=== PATIENT | female | born 1995 | race Caucasian/White ===

== ENCOUNTER 2024-03-13 10:11 | Outpatient (REF) | payer OTHER, SELFPAY ==
[2024-03-14 10:35] LABS: Appearance Urine Clear; Color Urine Yellow; Glucose Urine UA Negative (Negative); Leukocyte Esterase Urine Negative (Negative); Nitrite Urine Negative (Negative); Specific Gravity - Urine <= 1.005 (1.005-1.025); Urine Blood Negative (Negative); Urine Ketones Negative (Negative); Urine Protein Negative (Neg-Trace)
== END 2024-03-13 10:12 | disposition home or self-care (01) ==
LOC: HO.HMGCLNP 10:11
PROVIDERS: Visit Provider Nurse Practitioner Primary Care
DX: Z13.89 Encounter for screening for other disorder (principal)
CPT/HCPCS: 81003

== ENCOUNTER 2024-03-13 14:52 | Outpatient (AMB) | payer OTHER, SELFPAY ==
--- NOTE | 2024-03-13 14:59 | MHC.PC.OV ---
Vital Signs 03/13/24 15:00 03/13/24 15:44 03/13/24 15:44 03/13/24 16:11 Height 5 ft 2 in Weight 125 lb BMI 22.9 BP 110/66 102/64 96/62 100/68 Blood Pressure Location Rt brachial Lt brachial Lt brachial Rt brachial Position Sitting Supine Standing Pulse 107 H 108 H Pulse Source Pulse Oximeter Pulse Oximeter Auscultation Pulse Oximetry (%) 98 98 Oxygen Delivery Method Room Air Room Air Intake Visit Reasons: Palpitations/OBGYN referral Intake Note: Pt is here today for a sick visit. Pt c/o palpitations, dizziness, blurry vision. 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 Allergies No Known Allergies Allergy (Verified 03/13/24 15:03) Medication List - Last Reconciled 03/13/24 by Chad Donis, RAPHAEL acetaminophen (Tylenol) 325 mg PO QID PRN ibuprofen 200 mg PO Q6H PRN multivitamin 1 tab PO DAILY Tobacco use date assessed: 03/13/24 Dental Screening Dental Screen Date: 03/13/24 Did you have a dental visit in the last 12 months?: No Did you have a dental problem in the last 6 months where you did not have access to dental care?: Yes Was dental information given to patient?: Yes HPI HPI Comments History of Present Illness Details This is a 28-year-old female who I am meeting for the 1st time Patient is here for sick visit, currently offering complaints of palpitations and dizziness after standing from a seated position. She reports that she will have a normal heart rate while sitting, after standing up her heart rate will start racing and will take a minute or 2 for to come down. She also reports intermittent dizziness. She has had past workup with Cardiology through [facility], states she has had exercise test and 3 day Holter monitor. She has not heard from them the results even though this was months ago. We will obtain records from [facility]. She denies chest pain, shortness a breath, numbness, nausea, vomiting, diarrhea. 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 Patient has upcoming appointment for genetic testing. Patient does not currently have OBGYN. She reports going to urgent care 5 days prior to this appointment had pelvic exam and was told she had vaginal prolapse. Patient's symptoms are discomfort during intercourse, pelvic floor pressure, feeling of sitting on a ball at times . Patient also has complaints of incomplete urinary voiding. Will give patient referral to OBGYN. Will obtain in office EKG. Will draw labs. Will obtain orthostatic blood pressures and heart rate. Will obtain records from patient's previous providers. [facility] Medical History (Updated 03/13/24 @ 16:19 by RAPHAEL Hoskins) ADHD Anxiety Migraines Muaro-Danlos syndrome Surgical History H/O bilateral salpingectomy Family History Father Hypertension Mental health disorder Substance use disorder Mother No problems noted. Social History Housing: Apartment Patient Tobacco Use Status: Never used Tobacco e-Cigarette/Vaping Use: Never Used service: No Current occupational status: employed and student Cognitive needs: No Hearing needs: No Vision needs: Yes Female Reproductive History Menstrual Multiple births: 3 Questionnaire PHQ-9 Over the last 2 weeks, how often have you been bothered by any of the following problems? 1. Little interest or pleasure in doing things: not at all 2. Feeling down, depressed, or hopeless: not at all 3. Trouble falling or staying asleep, or sleeping too much: more than half the days 4. Feeling tired or having little energy: more than half the days 5. Poor appetite or overeating: more than half the days 6. Feeling bad about yourself - or that you are a failure or have let yourself or your family down: not at all 7. Trouble concentrating on things, such as reading the newspaper or watching television: nearly every day 8. Moving or speaking so slowly that other people could have noticed. Or the opposite - being so fidgety or restless that you have been moving around a lot more than usual: several days 9. Thoughts that you would be better off or of hurting yourself in some way: not at all Total score: 10 Depression Screening Interpretation: Positive Depression Screening Follow-up: Existing condition (Patient declining psychiatrist, medication, therapist) Depression Screening Done: Yes 64108 - PHQ-9 Billing: Yes Source: Developed by Kathryn Lucas Kurt Kroenke and colleagues, with an educational emma from [employer]. Thrive Questionnaire Date Thrive assessed: 03/13/24 I am a: Patient What is your living situation today?: I have a steady place to live Within the past 12 months, did the food you bought not last and you didn't have the money to get more?: Never true Within the past 12 months, did you worry whether your food would run out before you got money to buy more?: Never true Do you have trouble paying for medicines?: No Do you have trouble getting transportation to medical appointments?: Yes Do you have trouble paying your heating and electricity bill?: No Do you have trouble taking care of your child, family member or friend?: No Do you have trouble with day-to-day activities such as bathing, preparing meals, shopping, managing finances, etc.?: No Are you currently unemployed and looking for a job?: No Are you interested in more education?: No Please select the resources that you would like help with: None Currently or been in a relationship where the following occur: no concerns reported THRIVE Score: 1 AUDIT C Alcohol Use Questionnaire (AUDIT-C) 1. How often do you have a drink containing alcohol?: Never 3. How often do you have six or more drinks on one occasion?: Never Total Score: 0 AVIS-7 AMB Questionnaire AVIS-7 Date AVIS - 7 assessed: 03/13/24 Feeling nervous, anxious, or on edge: 1 = Several days Not being able to stop or control worryin = More than half the days Worrying too much about different things: 2 = More than half the days Trouble relaxin = More than half the days Being so restless that it is hard to sit still: 2 = More than half the days Becoming easily annoyed or irritable: 3 = Nearly every day Feeling afraid as if something awful might happen: 1 = Several days Total AVIS-7 score (0-4 normal; 5-9 mild; 10-14 moderate; 15-21 severe): 13 Source: Developed by Kathryn Lucas Kurt Kroenke and colleagues, with an educational emma from [employer]. AVIS-7 Assessment Billing AVIS-7 Assessment Tool: AVIS-7 Assessment 30823 (Patient declining medication, therapist, psychiatrist) Review of Systems Const All systems reviewed & are unremarkable except as noted in HPI and below Denies fatigue and Denies fever(s) Eyes Denies blurry vision and Denies diplopia Card Denies chest pain and Denies dyspnea Resp Denies dyspnea Psych Reports anxiety, Denies depression and Denies panic attacks Endo Denies fatigue Physical exam (Primary Care) Vital Signs: Last Vital Signs Pulse 80 03/13/24 16:11 BP 100/68 03/13/24 16:11 Pulse Ox 98 03/13/24 15:44 Oxygen Delivery Method Room Air 03/13/24 15:44 BMI result Body Mass Index 22.9 Tobacco/Smoking Status: Tobacco use Status Tobacco use date assessed 03/13/24 03/13/24 15:07 Patient Tobacco Use Status Never used Tobacco 03/13/24 15:07 e-Cigarette/Vaping Use Never Used 03/13/24 15:07 Depression Screening Interpretation: Positive Depression Screening Follow-up: Existing condition (Patient declining psychiatrist, medication, therapist) Currently or been in a relationship where the following occur: no concerns reported Const General: cooperative and no acute distress Orientation/consciousness: patient oriented x3 Limitations: no limitations HENMT Head: Yes normal to inspection and Yes normocephalic Ears: hearing grossly normal bilaterally Eyes General: appearance normal, both eyes and all related structures Pupils: Equal, round and reactive pupils present EOM: EOMs intact bilaterally Direct Ophthalmoscopy: normal light reflex, no photophobia and no papilledema Neck Neck: Yes normal visual inspection and Yes full ROM Resp Effort & Inspection: normal respiratory effort Auscultation: clear to auscultation bilaterally Cardio Rate: regular rate Rhythm: regular rhythm Heart sounds: S1 normal heart sound present and S2 normal heart sound present Peripheral pulses: Peripheral pulses 2+ throughout General: Yes deferred Neuro General: patient oriented x3 Cranial nerves: Yes CN's II-XII intact bilaterally and Yes Equal, round and reactive pupils present Gait exam (Neuro): Normal gait present Romberg Test: Negative Psych Affect: normal affect Attitude: cooperative Thought process: Normal thought process present Thought content: Normal thought content present, suicidality and no homicidality Insight: Good insight present (Psych) Judgement: Good judgement present (Psych) Office Procedures EKG [id number], Complete Results AMB Urinalysis, Automated UA Leukoctes 0 Charisma/uL Last Edit by Candy Downey [facility] on 03/13/24 15:38 UA Nitrite Negative Last Edit by Candy Downey [facility] on 03/13/24 15:38 UA Urobilinogen 0.2 mg/dL Last Edit by Candy Downey [facility] on 03/13/24 15:38 UA Protein 0 mg/dL Last Edit by Candy Downey [facility] on 03/13/24 15:38 UA pH 6.0 Last Edit by Candy Downey [facility] on 03/13/24 15:38 UA Blood 0 Claude/uL Last Edit by Candy Downey [facility] on 03/13/24 15:38 UA Specific Sumner 1.000 Last Edit by Candy Downey [facility] on 03/13/24 15:38 UA Ketone Negative Last Edit by Candy Downey [facility] on 03/13/24 15:38 UA Bilirubin 0 mg/dL Last Edit by Candy Downey [facility] on 03/13/24 15:38 UA Glucose 0 mg/dL Last Edit by Candy Downey [facility] on 03/13/24 15:38 Results Reviewed Results Reviewed: Laboratory Last Values Urine pH (Auto) 6.0 03/13/24 15:37 Specific [place]ner (Auto) 1.000 03/13/24 15:37 Urine Protein (Auto) 0 mg/dL 03/13/24 15:37 Glucose (UA)(Auto) 0 mg/dL 03/13/24 15:37 Urine Ketones (Auto) Negative 03/13/24 15:37 Urine Blood (Auto) 0 Claude/uL 03/13/24 15:37 Urine Nitrite (Auto) Negative 03/13/24 15:37 Urine Bilirubin (Auto) 0 mg/dL 03/13/24 15:37 Urine Urobilinogen (Auto) 0.2 mg/dL 03/13/24 15:37 Leukocyte Esterase (Auto) 0 Charisma/uL 03/13/24 15:37 Assessment and Plan Assessment & Plan (1) Voiding dysfunction: Comment: Will refer to Urology. In office urinalysis negative. Voiding dysfunction may be secondary to vaginal prolapse Code(s): N39.8 - Other specified disorders of urinary system (2) Vaginal prolapse: Comment: Will obtain notes from previous provider who diagnosed vaginal prolapse. Will refer to OBGYN. Code(s): N81.10 - Cystocele, unspecified (3) Palpitations: Comment: Normal sinus rhythm on EKG in office. Patient negative for postural hypotension. 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 Patient should increase fluid intake. Code(s): R00.2 - Palpitations (4) Anxiety: Comment: Patient has medical history of anxiety and ADHD. Not currently taking medications for this. Patient has declined psychiatrist and therapist. No SI/HI. Code(s): F41.9 - Anxiety disorder, unspecified Plan: Take your medications as prescribed. If you were prescribed antibiotics today, it is important that you take your medication to their entirety, do not skip any doses, do not finish them early. Follow-up with your primary care provider this week. Return to the emergency department with new or worsening symptoms. Such as fevers, chills, chest pain, shortness of breath, nausea, vomiting, dizziness, headache, vision changes, lethargy In case of emergency call 911 Plan Patient will follow-up in 4 months Orders: Orders Comprehensive Met. Panel Today Z91.89 - Other specified personal risk factors, not elsewhere classified UA CC w/rflx Micro + Cult Today Z13.89 - Encounter for screening for other disorder Vitamin B6 Today Z13.21 - Encounter for screening for nutritional disorder Lipid Panel Today Z13.220 - Encounter for screening for lipoid disorders AMB EKG-In Office Today Z13.6 - Encounter for screening for cardiovascular disorders Ferritin Today R42 - Dizziness and giddiness Complete Blood Count Auto Diff Today Z13.0 - Encounter for screening for diseases of the blood and blood-forming organs and certain disorders involving the immune mechanism TSH reflex Free T4 Today Z13.29 - Encounter for screening for other suspected endocrine disorder Vitamin D 25-OH (D2 and D3) Today Z13.21 - Encounter for screening for nutritional disorder Vitamin B12 Today Z13.21 - Encounter for screening for nutritional disorder AMB Urinalysis Automated Today Z13.9 - Encounter for screening, unspecified 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
[2024-03-13 15:00] VITALS: BP 110/66; PULSE 107; O2SAT 98; BMI 22.9
[2024-03-13 15:44] VITALS: BP 102/64; BP 96/62; PULSE 108; O2SAT 98
[2024-03-13 16:11] VITALS: BP 100/68
== END 2024-03-13 16:13 | disposition home or self-care (01) ==
PROVIDERS: Visit Provider Nurse Practitioner Primary Care
DX: N39.8 Other specified disorders of urinary system (principal); N81.10 Cystocele, unspecified; R00.2 Palpitations; F41.9 Anxiety disorder, unspecified
CPT/HCPCS: 81003; 93000; 99204

== ENCOUNTER 2024-03-25 09:31 | Outpatient (REF) | payer OTHER, SELFPAY ==
[2024-03-25 10:22] LABS: MANUAL DIFF FLAG NO
[2024-03-25 10:33] LABS: Basophils Percent Auto 0.4 % (0-2); Eosinophils Absolute Auto 0.1 X10*3/uL (0.0-0.4); Eosinophils Percent Auto 1.1 % (0-4); Hematocrit 39.1 % (37.0-47.0); Imm Gran Abs Auto 0.04 X10*3/uL (0.00-0.03); Imm Gran Pct Auto 0.4 % (0.0-0.4); Lymphocytes Absolute Auto 2.4 X10*3/uL (1.2-4.9); Lymphocytes Percent Auto 24.5 % (20-40); Mean Corpuscular HGB Conc 33.2 g/dl (31.0-35.0); Mean Corpuscular Hemoglobin 29.7 pg (27.0-33.0); Mean Corpuscular Volume 89.3 fL (80.0-98.0); Mean Platelet Volume 9.4 fL (9.4-12.3); Monocytes Absolute Auto 0.4 X10*3/uL (0.1-1.2); Monocytes Percent Auto 4.3 % (2-11); Neutrophils Absolute Auto 6.7 x10*3/uL (2.0-8.3); Neutrophils Percent Auto 69.3 % (45-73); Platelet Count 337 X10*3/uL (160-400); Red Blood Count 4.38 X10*6/uL (4.20-5.50); Red Cell Distribution Width 12.7 % (11.0-16.0); White Blood Count 9.6 X10*3/uL (4.8-10.8)
[2024-03-25 11:21] LABS: Alanine Aminotransferase 7 U/L (0-31); Albumin Level 4.6 g/dL (3.5-5.0); Alkaline Phosphatase 107 U/L (39-117); Anion Gap 14 (12-20); Aspartate Amino Transferase 14 U/L (5-31); Bilirubin Total 0.4 mg/dL (0.0-1.0); Blood Urea Nitrogen 9 mg/dL (9-16); Calcium 9.9 mg/dL (8.4-10.2); Carbon Dioxide 29 mmol/L (22-29); Chloride 104 mmol/L (96-108); Cholesterol 195 mg/dL (<200); Estimated Glomerular Filt Rate > 60; Glucose Random 84 mg/dL (60-115); HDL Cholesterol 42 mg/dL (>40); LDL Cholesterol Calculated 124 mg/dL (<100); Sodium 143 mmol/L (135-145); Total Protein 7.9 g/dL (6.5-8.0); Triglycerides 145 mg/dL (<150)
[2024-03-25 11:30] LABS: Ferritin 36 ng/mL (10-122); TSH reflex Free T4 0.71 uIU/mL (0.32-4.0)
[2024-03-25 11:37] LABS: Vitamin B12 395 pg/mL (200-900)
[2024-03-29 13:58] LABS: Vitamin D 25-OH, D2 <4 ng/mL; Vitamin D 25-OH, D3 26 ng/mL; Vitamin D 25-OH, Total 26 ng/mL (30-100)
[2024-04-03 06:09] LABS: Vitamin B6 19.8 ng/mL (2.1-21.7)
== END 2024-03-25 09:32 | disposition home or self-care (01) ==
LOC: HO.HMGCLDS 09:31
PROVIDERS: PCP Internal Medicine; Visit Provider Nurse Practitioner Primary Care
DX: R42 Dizziness and giddiness (principal); Z13.21 Encounter for screening for nutritional disorder; Z13.220 Encounter for screening for lipoid disorders; Z13.0 Encounter for screening for diseases of the blood and blood-forming organs and certain disorders involving the immune mechanism; Z91.89 Other specified personal risk factors, not elsewhere classified; Z13.29 Encounter for screening for other suspected endocrine disorder
CPT/HCPCS: 36415; 80053; 80061; 82306; 82607; 82728; 84207; 84443; 85025

== ENCOUNTER 2024-04-07 14:00 | Emergency (ER) | payer OTHER, SELFPAY ==
--- NOTE | 2024-04-07 14:01 | ED_ITS ---
HPI - General Adult General Chief complaint: Arrhythmia/Palpitations Stated complaint: chest pain with palpations Time Seen by Provider: 04/07/24 16:30 Source: patient Mode of arrival: ambulatory Limitations: no limitations History of Present Illness ED Provider: ant GARCIA narrative: Patient is 28 years old with history of palpitation for last few years been seen at [facility] had Holter monitoring done so ago showing possible POTS has got a new PCP now patient has been noticing amputation episodes lately faster heart rate was 151 week ago when she went to urgent care center and was sinus tachycardia at that time Related Data Home Medications ?Medication ?Instructions ?Recorded ?Confirmed acetaminophen 325 mg capsule 325 mg PO QID PRN 03/13/24 03/13/24 (Tylenol) ibuprofen 200 mg capsule 200 mg PO Q6H PRN 03/13/24 03/13/24 multivitamin 1 tab PO DAILY 03/13/24 03/13/24 Allergies Allergy/AdvReac Type Severity Reaction Status Date / Time No Known Allergies Allergy Verified 04/07/24 14:20 Review of Systems 2 Review of Systems: Yes all other systems are reviewed and are negative PMFSH Past Medical History Medical History Internal hemorrhoid Abnormal glucose tolerance test (GTT) Subchorionic hematoma ADHD Anxiety Migraines Mauro-Danlos syndrome Surgical History H/O bilateral salpingectomy Family History Family History Father Hypertension Mental health disorder Substance use disorder Mother No problems noted. Social History Social History Housing: Apartment Patient Tobacco Use Status: Never used Tobacco e-Cigarette/Vaping Use: Never Used Substance Use Type: Marijuana Advance Directives: No Advance Directives Information Provided: No Do you have a plan to hurt others: No Plan service: No Current occupational status: employed and student Cognitive needs: No Hearing needs: No Vision needs: Yes Physical Exam ED Vital Signs: Vital Signs - 24 hr 04/07/24 14:18 04/07/24 16:13 04/07/24 16:14 Temperature 97.9 F 98.5 F Pulse Rate 95 66 66 Respiratory Rate 18 17 Blood Pressure 108/78 128/76 128/76 Pulse Oximetry 98 99 Oxygen Delivery Method Room Air Room Air 04/07/24 16:14 04/07/24 16:15 Temperature Pulse Rate 66 80 Respiratory Rate Blood Pressure 121/76 109/75 Pulse Oximetry Oxygen Delivery Method BMI result Body Mass Index 22.3 Appearance: Alert. Oriented X3. No acute distress. Eyes: No pallor or ENT: Pharynx normal. Oral Mucosa moist Neck: Normal inspection. Neck supple. CVS: Normal heart rate and rhythm. Pulses normal. Respiratory: No respiratory distress. Equal air entry bilateral, no wheezing/rales/rhonchi Abdomen: Soft and nontender. Bowel sounds are present, no mass palpable, no CVA tenderness Skin: Skin warm and dry. Normal skin color. Normal skin turgor. Extremities: No lower extremity edema. No calf tenderness Neuro: Oriented X 3. No motor deficit. No sensory deficit.No cerebellar signs , cranial nerves II-XII intact Course Course Course Narrative: 28-year-old female presents for evaluation of chest pain palpitations and dizziness. She reports having a tilt-table test scheduled. Plan for cardiac workup including labs, EKG and orthostatics. Medical Decision Making Medical Decision Making [facility] Narrative: Patient with history of tachycardia palpitation episode been in workup with PCP denies any urinary symptoms noted to have slight leukocytosis no source of infection no fever cup essentially negative patient advised to follow with PCP for further evaluation possible POTS syndrome Differential Diagnosis Differential Diagnoses: The differential diagnosis associated with the presentation includes Lab Data MDM Lab Attestation statement: I reviewed the patient's lab results. 04/07/24 14:14 04/07/24 14:14 Labs: Lab Results 04/07/24 Range/Units 14:14 WBC 14.1 H (4.8-10.8) X10*3/uL RBC 4.28 (4.20-5.50) X10*6/uL Hgb 12.9 (12.0-16.0) g/dl Hct 36.9 L (37.0-47.0) % MCV 86.2 (80.0-98.0) fL MCH 30.1 (27.0-33.0) pg MCHC 35.0 (31.0-35.0) g/dl RDW 13.0 (11.0-16.0) % Plt Count 299 (160-400) X10*3/uL MPV 9.3 L (9.4-12.3) fL Immature Gran % (Auto) 0.4 (0.0-0.4) % Neut % (Auto) 78.5 H (45-73) % Lymph % (Auto) 16.2 L (20-40) % [place] % (Auto) 4.5 (2-11) % Eos % (Auto) 0.1 (0-4) % Baso % (Auto) 0.3 (0-2) % Lymph # (Auto) 2.3 (1.2-4.9) X10*3/uL [place] # (Auto) 0.6 (0.1-1.2) X10*3/uL Eos # (Auto) 0.0 (0.0-0.4) X10*3/uL Baso # (Auto) 0.0 (0.0-0.2) X10*3/uL Abs Immat Gran (auto) 0.06 H (0.00-0.03) X10*3/uL Absolute Neuts (auto) 11.1 H (2.0-8.3) x10*3/uL Absolute Nucleated RBC 0.000 (0.0-0.012) X10*3/uL Nucleated RBC % (auto) 0.0 (0.0-0.2) /100WBC PT 12.9 (11.1-13.3) SEC INR 1.1 (0.9-1.1) Sodium 137 (135-145) mmol/L Potassium 3.7 (3.3-5.1) mmol/L Chloride 103 (96-108) mmol/L Carbon Dioxide 24 (22-29) mmol/L Anion Gap 14 (12-20) BUN 11 (9-16) mg/dL Creatinine 0.63 (0.5-1.4) mg/dL Estim Creat Clear Calc 106.1 Estimated GFR > 60 Random Glucose 92 (60-115) mg/dL Calcium 10.0 (8.4-10.2) mg/dL Phosphorus 3.4 (2.7-4.5) mg/dL Magnesium 1.9 (1.6-2.6) mg/dL Total Bilirubin 0.6 (0.0-1.0) mg/dL AST 18 (5-31) U/L ALT 8 (0-31) U/L Alkaline Phosphatase 112 (39-117) U/L Troponin I High Sens < 2.7 (<3.5-17.0) ng/L Total Protein 7.9 (6.5-8.0) g/dL Albumin 4.7 (3.5-5.0) g/dL Lipase 16 (8-78) U/L Independent Interpretation I performed an independent interpretation of an: EKG Interpretation: Normal sinus rhythm heart rate 96 beats per minute normal interval normal axis no acute ST T wave changes Discharge Plan Discharge Clinical Impression: Sinus tachycardia Patient Disposition: Home, Self-Care Instructions: Tachycardia (ED) Additional Instructions: Possible you have POTS syndrome need further workup by your PCP as planned Drink at least 3 L of fluids daily Follow-up with your PCP Prescriptions: No Action multivitamin Tablet 1 tab PO DAILY acetaminophen [Tylenol] 325 mg capsule 325 mg PO QID PRN ibuprofen 200 mg capsule 200 mg PO Q6H PRN Print Language: Portuguese
--- NOTE | 2024-04-07 14:02 | ECG_ITS ---
Test Reason : CHEST PAIN Blood Pressure : / mmHG Vent. Rate : 096 BPM Atrial Rate : 096 BPM P-R Int : 146 ms QRS Dur : 084 ms QT Int : 354 ms P-R-T Axes : 083 075 054 degrees QTc Int : 447 ms Normal sinus rhythm Right atrial enlargement Borderline ECG No previous ECGs available Referred By: Malcolm Vergara Electronically Signed By:PIEDAD HERNANDEZ MD
[2024-04-07 14:18] VITALS: BP 108/78; PULSE 95; RESP 18; TEMP 36.6; O2SAT 98; BMI 22.3
[2024-04-07 14:39] LABS: MANUAL DIFF FLAG NO
[2024-04-07 14:41] LABS: Basophils Percent Auto 0.3 % (0-2); Eosinophils Percent Auto 0.1 % (0-4); Hematocrit 36.9 % (37.0-47.0); Hemoglobin 12.9 g/dl (12.0-16.0); Imm Gran Abs Auto 0.06 X10*3/uL (0.00-0.03); Imm Gran Pct Auto 0.4 % (0.0-0.4); Lymphocytes Absolute Auto 2.3 X10*3/uL (1.2-4.9); Lymphocytes Percent Auto 16.2 % (20-40); Mean Corpuscular Hemoglobin 30.1 pg (27.0-33.0); Mean Corpuscular Volume 86.2 fL (80.0-98.0); Mean Platelet Volume 9.3 fL (9.4-12.3); Monocytes Absolute Auto 0.6 X10*3/uL (0.1-1.2); Monocytes Percent Auto 4.5 % (2-11); Neutrophils Absolute Auto 11.1 x10*3/uL (2.0-8.3); Neutrophils Percent Auto 78.5 % (45-73); Platelet Count 299 X10*3/uL (160-400); Red Blood Count 4.28 X10*6/uL (4.20-5.50); White Blood Count 14.1 X10*3/uL (4.8-10.8)
[2024-04-07 14:46] LABS: INTERNATIONAL NORM RATIO 1.1 (0.9-1.1); Prothrombin Time 12.9 SEC (11.1-13.3)
[2024-04-07 14:59] LABS: Alanine Aminotransferase 8 U/L (0-31); Albumin Level 4.7 g/dL (3.5-5.0); Alkaline Phosphatase 112 U/L (39-117); Anion Gap 14 (12-20); Aspartate Amino Transferase 18 U/L (5-31); Bilirubin Total 0.6 mg/dL (0.0-1.0); Blood Urea Nitrogen 11 mg/dL (9-16); Carbon Dioxide 24 mmol/L (22-29); Chloride 103 mmol/L (96-108); Creatinine Clr Calc Pharmacy 106.1; Estimated Glomerular Filt Rate > 60; Glucose Random 92 mg/dL (60-115); Lipase 16 U/L (8-78); Magnesium 1.9 mg/dL (1.6-2.6); Phosphorus 3.4 mg/dL (2.7-4.5); Potassium 3.7 mmol/L (3.3-5.1); Sodium 137 mmol/L (135-145); Total Protein 7.9 g/dL (6.5-8.0)
[2024-04-07 15:15] LABS: Troponin-I High Sensitivity < 2.7 ng/L (<3.5-17.0)
[2024-04-07 16:13] VITALS: BP 128/76; PULSE 66; RESP 17; TEMP 36.9; O2SAT 99
[2024-04-07 16:14] VITALS: BP 121/76; BP 128/76; PULSE 66
[2024-04-07 16:15] VITALS: BP 109/75; PULSE 80
[2024-04-07 18:59] VITALS: BP 109/75; PULSE 80; RESP 17; TEMP 36.9; O2SAT 99
== END 2024-04-07 18:59 | disposition home or self-care (01) ==
PROVIDERS: Physician Assistant; Emergency Provider Internal Medicine; PCP Internal Medicine
DX: R00.0 Tachycardia, unspecified (principal); R07.9 Chest pain, unspecified; R42 Dizziness and giddiness; R00.2 Palpitations; F41.9 Anxiety disorder, unspecified; Q79.60 Ehlers-Danlos syndrome, unspecified; F12.90 Cannabis use, unspecified, uncomplicated; Z79.899 Other long term (current) drug therapy
CPT/HCPCS: 36415; 80053; 83690; 83735; 84100; 84484; 85025; 85610; 93005; 99284

== ENCOUNTER → 2024-04-07 14:02 | Outpatient (BNV) | payer OTHER, SELFPAY | PROVIDERS: PCP Internal Medicine; Visit Provider Internal Medicine Cardiovascular Disease | DX: R07.9 Chest pain, unspecified (principal); R94.31 Abnormal electrocardiogram [ECG] [EKG]; I51.7 Cardiomegaly | CPT/HCPCS: 93010 ==

== ENCOUNTER → 2024-04-15 15:01 | Outpatient (REF) | payer OTHER, SELFPAY ==
--- NOTE | 2024-04-15 15:03 | HM_ITS ---
Conclusion: 1. Patient was monitored for total period of 6 days and 23 hours 2. Baseline was normal sinus rhythm with average heart of 76 beats per minute 3. No significant pauses or arrhythmias noted 4. Patient marked the counter 64 times with symptoms of chest pain or palpitations that correlated with sinus rhythm MTDD
== END ==
LOC: HO.CARD 15:01
PROVIDERS: PCP Internal Medicine; Visit Provider Nurse Practitioner Primary Care
DX: R00.2 Palpitations (principal)
CPT/HCPCS: 93242

== ENCOUNTER → 2024-04-15 15:03 | Outpatient (BNV) | payer OTHER, SELFPAY | PROVIDERS: PCP Internal Medicine; Visit Provider Internal Medicine Cardiovascular Disease | DX: R00.0 Tachycardia, unspecified (principal) | CPT/HCPCS: 93244 ==

== ENCOUNTER 2024-04-29 14:19 | Outpatient (REF) | payer OTHER, SELFPAY ==
[2024-04-29 23:04] LABS: CT PCR NOT DETECTED (Not Detect.); NG PCR NOT DETECTED (Not Detect.)
[2024-04-30 10:59] LABS: Bacterial Vaginosis PCR NEGATIVE (Negative); Candida Group PCR NOT DETECTED (Not Detect); Candida glab krusei PCR NOT DETECTED (Not Detect); Trichomonas vaginalis PCR NOT DETECTED (Not Detect)
== END 2024-04-29 14:20 | disposition home or self-care (01) ==
LOC: HO.LAB 14:19
PROVIDERS: PCP Internal Medicine; Visit Provider Advanced Practice Midwife
DX: Z01.419 Encounter for gynecological examination (general) (routine) without abnormal findings (principal); R10.2 Pelvic and perineal pain; N89.8 Other specified noninflammatory disorders of vagina; N39.8 Other specified disorders of urinary system; N81.10 Cystocele, unspecified; Q79.60 Ehlers-Danlos syndrome, unspecified; Z87.59 Personal history of other complications of pregnancy, childbirth and the puerperium; Z90.79 Acquired absence of other genital organ(s); Z11.3 Encounter for screening for infections with a predominantly sexual mode of transmission
CPT/HCPCS: 0352U; 0353U; 36415; 87625; 88175; 99385

== ENCOUNTER 2024-04-29 14:19 | Outpatient (AMB) | payer OTHER, SELFPAY ==
[2024-04-29 14:46] VITALS: BP 112/62; BMI 23.2
--- NOTE | 2024-04-29 14:46 | MHC.OFFVIS ---
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 She says she has history of 3 deliveries all rapid and quick only 1 with an epidural. 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 She has leg braces that she uses to keep her knees stable and she is always needed to work hard to make sure that she does not hyperextend her joints which are very hyper mobile. She has issues with prolapse and holding her urine and emptying completely and also lots of other related issues. She is getting evaluated in many different forms in [place] for all of this she thought she had a Pap smear at her last 2 pelvic exams 1 it primary care recently and 1 at urgent care but usually Pap smears are not done in those settings so I am recommending we do a Pap smear today along with testing she had her tubes removed after her 3rd baby because she has such close pregnancies and complications with the last ones.(common OB concerns 1 hemorrhage slow leak at 37 weeks growth restriction is 1 subchorionic hemorrhage with 1 . [facility] Medical History (Updated 04/29/24 @ 15:57 by Migdalia King CNM) Internal hemorrhoid Abnormal glucose tolerance test (GTT) Subchorionic hematoma ADHD Anxiety Migraines Mauro-Danlos syndrome Surgical History (Updated 04/29/24 @ 15:57 by Migdalia King CNM) H/O bilateral salpingectomy Family History Father Hypertension Mental health disorder Substance use disorder Mother No problems noted. 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 General: healthy appearing, comfortable, no acute distress, well developed and alert Nutritional Appearance: average body habitus Orientation/consciousness: patient oriented x3 Limitations: no limitations HEENT Head: Yes normocephalic Neck Neck: Yes normal visual inspection Chest Chest palpation & inspection: normal inspection of the chest Breast/axilla inspection: normal inspection of the breasts and normal inspection of the axillae Breast/axilla palpation: normal palpation of the breasts and normal palpation of the axillae Resp Effort & Inspection: normal respiratory effort GI Inspection: Yes normal to inspection, No Abdominal wall edema and No distended Palpation (GI): Soft to palpation and nontender Other: External exam within normal limits. Evidence of excellent 2nd degree last repair. Vagina pink and moist cervix multiparous pink moist normal appearing mucus midposition proximally 6 cm inside the introitus. Uterus is small firm retroverted mobile nontender adnexa nontender no enlarged masses. Bladder slightly full patient was able to sustain a very good strong Kegel with some elevation of cervix in the process. When patient bore down on request, there was some dropping the uterine structures but not close to the degree of prolapse. General: Yes bladder normal to palpation External Female Exam: normal external appearance and normal appearance of the urethra Speculum Exam - Vagina: normal appearance of the vagina, normal palpation and normal vaginal discharge Speculum Exam - Cervix: normal appearance of the cervix, normal palpation and nontender Bimanual exam- vagina & uterus: normal bimanual exam, normal palpation, uterine size normal, bladder normal to palpation, consistency normal, normal palpation, uterine mobility normal, uterine shape normal, No Cervical tenderness present, non-tender and no cervical motion tenderness Bimanual Exam- Adnexa, other: normal adnexae, no masses, normal and No adnexal tenderness Neuro General: patient oriented x3 Assessment & Plan Assessment & Plan (1) Voiding dysfunction: Comment: Will refer to Urology. In office urinalysis negative. Voiding dysfunction may be secondary to vaginal prolapse Code(s): N39.8 - Other specified disorders of urinary system Category: Medical (2) Vaginal prolapse: Comment: Will obtain notes from previous provider who diagnosed vaginal prolapse. Will refer to OBGYN. Code(s): N81.10 - Cystocele, unspecified Category: Medical (3) Mauro-Danlos syndrome: Code(s): Q79.60 - Mauro-Danlos syndrome, unspecified Category: Medical (4) H/O rapid labor: Code(s): Z87.59 - Personal history of other complications of , childbirth and the puerperium Category: Medical (5) Cervical cancer screening: Code(s): Z12.4 - Encounter for screening for malignant neoplasm of cervix Category: Medical (6) Encounter for screening examination for sexually transmitted disease: Code(s): Z11.3 - Encounter for screening for infections with a predominantly sexual mode of transmission Category: Medical (7) H/O bilateral salpingectomy: Comment: 01/2022 Code(s): Z90.79 - Acquired absence of other genital organ(s) Category: Surgical (8) Well woman exam with routine gynecological exam: Code(s): Z01.419 - Encounter for gynecological examination (general) (routine) without abnormal findings Category: Medical Plan -----Discussed in this visit the following: healthy balanced diet, regular and consistent exercise, getting recommended health screens, doing the best she can for her particular health concerns, kegel exercises, pap smear screening and followup recommendations, mammography screening and SBE, normal changes in cycles in her life stage--- . Most of the visit was spent discussing her hypermobility in all its forms and how it is manifested throughout her life she already has a urology referral. I am placing a pelvic floor specialty/PT referral she did a very good strong long prolonged Kegel with resultant lift and support of pelvic structures in the office so I expect while this may be of value it may simply be a refresher for what she already is able to do. She may in the future need a urogynecological referral at [facility]. She is awaiting a genetics evaluation to see genetically if she has the markers for Mauro Danlos syndrome. Discussed that in what ever fashion she certainly has hypermobility and anything that she can do to maintain strength and function and avoid unprotected jerky unsupported movements would be to her benefit she has already considered the benefits of swimming and cycling for strength and this makes sense. She has had her tubes tied so she does not need control discussed other issues involved with mild prolapse which can be very depending on whether not she has been straining or pushing. Today it was not profound except when she did bear down I was able to feel that there was some descensus but I would not have called it prolapse today. It would not surprise me if she has more evident prolapse if she has been straining for a bowel movement or some such thin. Testing was done for STIs even though she is low risk and Pap smear was done as it was not likely that it was done at the last few visits in fact it was not in the system her youngest child is 2 years old and she thinks 1 was probably done in that most likely at the beginning according to most care systems. 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
== END 2024-04-29 16:20 | disposition home or self-care (01) ==
LOC: HO.HWSM 14:19
PROVIDERS: PCP Internal Medicine; Visit Provider Advanced Practice Midwife
DX: Z01.419 Encounter for gynecological examination (general) (routine) without abnormal findings (principal); N39.8 Other specified disorders of urinary system; N81.10 Cystocele, unspecified; Q79.60 Ehlers-Danlos syndrome, unspecified; Z87.59 Personal history of other complications of pregnancy, childbirth and the puerperium; Z12.4 Encounter for screening for malignant neoplasm of cervix; Z11.3 Encounter for screening for infections with a predominantly sexual mode of transmission; Z90.79 Acquired absence of other genital organ(s)
CPT/HCPCS: 99385

== ENCOUNTER → 2024-05-13 12:47 | Outpatient (REF) | payer OTHER, SELFPAY ==
--- NOTE | 2024-05-13 12:51 | CA_ITS ---
Transthoracic Echocardiogram Patient (Last, First, Middle): Migdalia Marte, Gender: Female Date of : 1995 Age: 28 Procedure Date: 05/13/2024 Procedure Type: Transthoracic Echocardiogram Location: OP Height: 160.02 cm Weight: 57.15 kg BSA: 1.59 m2 Heart Rate: bpm BP: 114 / 68 mmHg Production Coordinator: MOSES Referring MD: Chad LIM Symptoms: R00.2 - Palpitations Study Quality: Adequate ECG Rhythm: Sinus Conclusions: - The left ventricular systolic function is normal. The calculated ejection fraction is 64% by biplane method. - No obvious valvular pathology seen on this study. Findings Left Ventricle Normal left ventricular cavity size. There is normal left ventricular wall thickness. The left ventricular systolic function is normal. The calculated ejection fraction is 64% by biplane method. There is no evidence of regional wall motion abnormalities. Diastolic function is normal for age. Right Ventricle Normal right ventricular cavity size and systolic function. Atria Both atria are normal in size. Aortic Valve There is a normal trileaflet aortic valve. There is no aortic valve stenosis. There is no aortic valve regurgitation. Mitral Valve The mitral valve appears normal. There is trace mitral valve regurgitation. There is no mitral valve stenosis. Pulmonic Valve The pulmonic valve is likely normal. Tricuspid Valve Normal tricuspid valve structure. There is trace tricuspid valve regurgitation. There is no evidence of pulmonary hypertension. Great Vessels The asc aorta is normal in size. Venous The inferior vena cava is mildly dilated and collapses greater than 50% with inspiration. Pericardium/Pleural There is no evidence of pericardial effusion. Prior Study Comparison No prior study available for comparison. Recommendations, Care & Conclusions No obvious valvular pathology seen on this study. Measurements 2D Linear Measurements IVSd: 0.68 0.6-0.9/0.6-1.0 cm LVIDd: 4.85 3.9-5.3/4.2-5.9 cm LVIDd Index: 3.05 2.4-3.2/2.2-3.1 cm/m2 LVIDs: 3.03 2.0-3.6 cm LVPWd: 0.55 0.7-1.1 cm LA Diam: 3.30 2.7-3.8/3.0-4.0 cm LAIDs Index: 2.08 1.5-2.3 cm/m2 LV Mass: 114.41 67-162/88-224 g LV Mass Index: 71.95 43-95/49-115 g/m2 LVOT Diam: 1.90 3.0+(-)1.3 cm 2D Systolic Function EF 4C: 63.30 >55% EF 2C: 63.40 >55% EF BiP: 63.90 >55% Mitral Valve MV Pk E: 0.88 MV PK A: 0.57 MV Decel Time: 180.00 E/A: 1.50 E'Lateral: 17.50 E'Medial: 11.60 E/E' Med: 7.60 E/E' Lat: 5.00 PHT: 53.00 MVA PHT: 4.15 Decel [place]: 4.90 Aortic Valve AoV Pk Andres: 1.52 AoV Mn Andres: 1.00 AoV VTI: 0.35 AoV Pk Grad: 9.00 Aov Mn Grad: 5.00 PARESH Cont.VTI: 2.35 LVOT LVOT Pk Andres: 1.35 LVOT Mn Andres: 0.89 LVOT VTI: 0.29 LVOT Pk Grad: 7.00 LVOT Mn Grad: 4.00 LVOT Diam: 1.90 LVOT Area: 2.84 Diastolic Function MV Pk E: 0.88 MV Pk A: 0.57 E/A: 1.50 E'Medial: 11.60 E/E' Med: 7.60 E' Laterial: 17.50 E/E' Lat: 5.00 Right Ventricle TAPSE (mm): 23.80 TVS' Andres: 12.30 Tricuspid Valve TR Pk Andres: 1.95 TR Pk Grad: 15.00 RA Press: 3.00 RVSP: 18.00 Great Vessels Aorta Sinus of Valsalva: 2.52 2.0-3.[address] [place]: 2.03 1.7-3.4 cm Ao Asc: 2.20 2.1-3.4 cm Updated in Other Vendor System with Status of Final Chema Herring MD electronically signed on 05/13/2024 3:31:15 PM with status of Final
== END ==
LOC: HO.CARD 12:47
PROVIDERS: PCP Internal Medicine; Visit Provider Nurse Practitioner Primary Care
DX: R00.2 Palpitations (principal)
CPT/HCPCS: 93306

== ENCOUNTER → 2024-05-13 12:51 | Outpatient (BNV) | payer OTHER, SELFPAY | PROVIDERS: PCP Internal Medicine; Visit Provider Internal Medicine | DX: R01.1 Cardiac murmur, unspecified (principal) | CPT/HCPCS: 93306 ==

== ENCOUNTER 2024-07-25 09:37 | Outpatient (AMB) | payer OTHER, SELFPAY ==
--- NOTE | 2024-07-25 09:35 | MHC.PC.OV ---
Intake Visit Reasons: c/o back and hip pain Allergies No Known Allergies Allergy (Verified 07/25/24 10:26) Medication List - Last Reconciled 07/25/24 by Alison Barrow MD acetaminophen (Tylenol) 325 mg PO QID PRN ibuprofen 200 mg PO Q6H PRN Tobacco use date assessed: 07/25/24 Dental Screening Dental Screen Date: 07/25/24 Did you have a dental visit in the last 12 months?: No Did you have a dental problem in the last 6 months where you did not have access to dental care?: No Was dental information given to patient?: No HPI c/o back and hip pain HPI Details Lady here today complaining of recurrent pain on her back, from between her shoulder blades and down to her lower back, which has been present now for years. She also is complaining of recurrent pain in her hip and knees, sometimes feels like her hip is dislocating whenever she walks. She has been taking ibuprofen and has been doing exercises to strengthen her muscles but this does not seem to be helping permanently. She has been diagnosed to have hypermobility syndrome when she was younger, and has been seen by Orthopedics, physical therapists and [employer] attendant when she was younger. She schedule an appointment with a shop helper in [place] with , at the [facility] in [place] for further evaluation and to check and see if she has Mauro-Danlos syndrome. Patient also states that she has been diagnosed to vaginal and bladder prolapse by Kali Hampton, urogynecologist at [facility], and is scheduled to have surgery on 09/19/2024. [facility] Medical History (Updated 07/26/24 @ 01:36 by Alison Barrow MD) Chronic hip pain, bilateral Lower back pain Chronic thoracic back pain Prolapse of female pelvic organs Hypermobility syndrome Internal hemorrhoid Abnormal glucose tolerance test (GTT) Subchorionic hematoma ADHD Anxiety Migraines Surgical History (Updated 04/29/24 @ 15:57 by Migdalia King CNM) H/O bilateral salpingectomy Family History Father Hypertension Mental health disorder Substance use disorder Mother No problems noted. Social History Housing: Apartment Patient Tobacco Use Status: Never used Tobacco e-Cigarette/Vaping Use: Never Used Substance Use Type: Marijuana service: No Current occupational status: employed Cognitive needs: No Hearing needs: No Vision needs: Yes Female Reproductive History Menstrual Age of Menarche: 14 Questionnaire Thrive Questionnaire Date Thrive assessed: 07/21/24 AVIS-7 AMB Questionnaire AVIS-7 Date AVIS - 7 assessed: 03/13/24 Source: Developed by Drs. Juan Pablo Orta, Kathryn Wang, Vinny Gray and colleagues, with an educational emma from [employer]. Review of Systems Const Denies fever(s) Eyes Denies change in vision ENT Reports no additional complaints and Reports neck pain Card Denies chest pain and Denies dyspnea Resp Denies chest congestion, Denies cough and Denies dyspnea GI Reports no additional complaints Details: Complaining of sensation of popping in her knees and hips whenever she walks or stands for extended periods of time. Musc Reports as per HPI, Reports arthralgias, Reports muscle cramps, Reports neck pain, Reports stiffness and Reports other Neuro Reports no additional complaints Physical exam (Primary Care) Tobacco/Smoking Status: Tobacco use Status Tobacco use date assessed 07/25/24 07/25/24 09:36 Patient Tobacco Use Status Never used Tobacco 07/25/24 09:36 e-Cigarette/Vaping Use Never Used 07/25/24 09:36 Thrive Assessment: Date of Thrive Assessment Date Thrive assessed 07/21/24 07/25/24 09:36 Telehealth Telehealth Telehealth Platform: [email or web address] Location of provider rendering services: practice address Location of patient: address on file Patient Identification confirmed using: Name, : Yes Telehealth method: video Patient verbally consented to treatment: Yes Patient verbally consented to billing insurance company: Yes Patient informed of any privacy concerns related to visit: Yes Minutes spent on Phone/Video with Pt.: 15 Assessment and Plan Assessment & Plan (1) Chronic thoracic back pain: Code(s): M54.6 - Pain in thoracic spine; G89.29 - Other chronic pain Qualifiers: Back pain laterality: midline Qualified Code(s): M54.6 - Pain in thoracic spine; G89.29 - Other chronic pain Plan: Ordered x-ray of the thoracic spine, continue with ibuprofen alternating with Tylenol, apply moist heat or Salonpas patch with lidocaine to affected area, has had physical therapy in the past and has been seen by Rheumatology when she was a child. (2) Lower back pain: Code(s): M54.50 - Low back pain, unspecified Qualifiers: Chronicity: chronic Back pain laterality: bilateral Sciatica presence: without sciatica Qualified Code(s): M54.50 - Low back pain, unspecified; G89.29 - Other chronic pain Plan: X-ray of lumbosacral spine ordered (3) Chronic hip pain, bilateral: Code(s): M25.551 - Pain in right hip; M25.552 - Pain in left hip; G89.29 - Other chronic pain Plan: Bilateral hip x-ray with pelvis ordered Orders: Orders XR lumbar spine 6V w bending 07/25/24 G89.29 - Other chronic pain, M25.551 - Pain in right hip, M25.552 - Pain in left hip, M54.50 - Low back pain, unspecified, M54.6 - Pain in thoracic spine XR hip BI w PEL1V 07/25/24 G89.29 - Other chronic pain, M25.551 - Pain in right hip, M25.552 - Pain in left hip, M54.50 - Low back pain, unspecified, M54.6 - Pain in thoracic spine XR thoracic spine 3V 07/25/24 G89.29 - Other chronic pain, M25.551 - Pain in right hip, M25.552 - Pain in left hip, M54.50 - Low back pain, unspecified, M54.6 - Pain in thoracic spine Coding Level of Care Code Tele Est Pt Level 3 (33211) Diagnoses Chronic midline thoracic back pain M54.6; G89.29 Back pain laterality: midline Chronic bilateral low back pain without sciatica M54.50; G89.29 Chronicity: chronic Back pain laterality: bilateral Sciatica presence: without sciatica Chronic hip pain, bilateral M25.551; M25.552; G89.29
== END 2024-07-25 13:06 | disposition home or self-care (01) ==
LOC: HO.HMCC 09:37
PROVIDERS: PCP Internal Medicine; Visit Provider Internal Medicine
DX: M54.6 Pain in thoracic spine (principal); G89.29 Other chronic pain; M54.50 Low back pain, unspecified; M25.551 Pain in right hip; M25.552 Pain in left hip

== ENCOUNTER → 2024-07-25 09:37 | Outpatient (BNVA) | payer OTHER, SELFPAY | PROVIDERS: PCP Internal Medicine; Visit Provider Internal Medicine ==

== ENCOUNTER 2025-03-23 12:47 | Outpatient (AMB) | payer OTHER, SELFPAY ==
[2025-03-23 13:17] VITALS: BP 100/62; PULSE 78; RESP 18; TEMP 36.9; O2SAT 98; BMI 26.0
--- NOTE | 2025-03-23 13:17 | MHC.PC.OV ---
Vital Signs 03/23/25 13:17 Height 5 ft 2 in Weight 142 lb BMI 26.0 BP 100/62 Blood Pressure Location Rt brachial Position Sitting Respiration 18 Pulse 78 Pulse Source Pulse Oximeter Temp 98.5 F Temp Source Oral Pulse Oximetry (%) 98 Oxygen Delivery Method Room Air Comment wgt with bilateral leg brace Intake Visit Reasons: request rx for durable brace Intake Note: Pt is here today to request rx for durable brace Allergies No Known Allergies Allergy (Verified 03/23/25 13:30) Medication List - Last Reconciled 03/23/25 by Alison Barrow MD acetaminophen (Tylenol) 325 mg PO QID PRN ibuprofen 200 mg PO Q6H PRN Tobacco use date assessed: 03/23/25 Dental Screening Dental Screen Date: 03/23/25 Did you have a dental visit in the last 12 months?: Yes Did you have a dental problem in the last 6 months where you did not have access to dental care?: Yes Was dental information given to patient?: Patient has dentist HPI request rx for durable brace HPI Details - The patient is a 29-year-old female presenting with 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 - The patient previously underwent a transvaginal hysterectomy, robotic S CP, sling and cystoscopy due to stage II pelvic organ prolapse done by Dr. 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 - Additionally, she reports chronic diarrhea with various stool consistencies, raising concern for potential malabsorption related to her gastrointestinal symptoms. [facility] Medical History (Updated 03/24/25 @ 01:04 by Alison Barrow MD) Chronic diarrhea Gait instability Chronic hip pain, bilateral Lower back pain Chronic thoracic back pain Prolapse of female pelvic organs Hypermobility syndrome Internal hemorrhoid Abnormal glucose tolerance test (GTT) Subchorionic hematoma ADHD Anxiety Migraines Surgical History (Updated 03/24/25 @ 00:58 by Alison Barrow MD) Status post embolization of uterine artery S/P sacrocolpopexy Status post vaginal hysterectomy History of tubal ligation Family History Father Hypertension Mental health disorder Substance use disorder Mother No problems noted. Social History Housing: Apartment Patient Tobacco Use Status: Never used Tobacco e-Cigarette/Vaping Use: Never Used Substance Use Type: Marijuana service: No Current occupational status: employed Cognitive needs: No Hearing needs: No Vision needs: Yes Female Reproductive History Menstrual Age of Menarche: 14 Questionnaire PHQ-9 Over the last 2 weeks, how often have you been bothered by any of the following problems? 1. Little interest or pleasure in doing things: not at all 2. Feeling down, depressed, or hopeless: not at all 3. Trouble falling or staying asleep, or sleeping too much: more than half the days 4. Feeling tired or having little energy: nearly every day 5. Poor appetite or overeating: several days 6. Feeling bad about yourself - or that you are a failure or have let yourself or your family down: not at all 7. Trouble concentrating on things, such as reading the newspaper or watching television: several days 8. Moving or speaking so slowly that other people could have noticed. Or the opposite - being so fidgety or restless that you have been moving around a lot more than usual: nearly every day 9. Thoughts that you would be better off or of hurting yourself in some way: not at all Total score: 10 Source: Developed by Drs. Juan Pablo Orta, Kathryn Wang, Vinny Gray and colleagues, with an educational emma from [employer]. Thrive Questionnaire Date Thrive assessed: 03/23/25 I am a: Patient What is your living situation today?: I have a steady place to live Within the past 12 months, did the food you bought not last and you didn't have the money to get more?: Never true Within the past 12 months, did you worry whether your food would run out before you got money to buy more?: Never true Do you have trouble paying for medicines?: No Do you have trouble getting transportation to medical appointments?: No Do you have trouble paying your heating and electricity bill?: No Do you have trouble taking care of your child, family member or friend?: No Do you have trouble with day-to-day activities such as bathing, preparing meals, shopping, managing finances, etc.?: No Are you currently unemployed and looking for a job?: No Are you interested in more education?: No Please select the resources that you would like help with: None Currently or been in a relationship where the following occur: No concerns reported THRIVE Score: 0 AUDIT C Alcohol Use Questionnaire (AUDIT-C) 1. How often do you have a drink containing alcohol?: Monthly or less 2. How many drinks containing alcohol do you have on a typical day when you are drinking?: 1 or 2 3. How often do you have six or more drinks on one occasion?: Never Total Score: 1 AVIS-7 AMB Questionnaire AVIS-7 Date AVIS - 7 assessed: 03/13/24 Feeling nervous, anxious, or on edge: 0 = Not at all Not being able to stop or control worryin = Not at all Worrying too much about different things: 1 = Several days Trouble relaxin = Several days Being so restless that it is hard to sit still: 0 = Not at all Becoming easily annoyed or irritable: 1 = Several days Feeling afraid as if something awful might happen: 0 = Not at all Total AVIS-7 score (0-4 normal; 5-9 mild; 10-14 moderate; 15-21 severe): 3 Source: Developed by Drs. Juan Pablo Orta, Kathryn Wang, Vinny Gray and colleagues, with an educational emma from [employer]. Review of Systems Const Denies fever(s) Eyes Denies change in vision ENT Reports no additional complaints and Reports neck pain Card Denies chest pain and Denies dyspnea Resp Denies chest congestion, Denies cough and Denies dyspnea GI Details: chronic diarrhea, loose stools, and food intolerance Details: Complaining of sensation of popping in her knees and hips whenever she walks or stands for extended periods of time, which makes it difficult for her to walk, frequently losing her balance, wears leg braces for support. Musc Reports as per HPI, Reports arthralgias, Reports muscle cramps, Reports neck pain and Reports stiffness Skin/Breast Reports unusual bruising Neuro Reports no additional complaints Paramjit/Lymph Reports easy bruising Aller/Immun Reports no additional complaints Physical exam (Primary Care) Vital Signs: Last Vital Signs Temp 98.5 F 03/23/25 13:17 Pulse 78 03/23/25 13:17 Resp 18 03/23/25 13:17 BP 100/62 03/23/25 13:17 Pulse Ox 98 03/23/25 13:17 Oxygen Delivery Method Room Air 03/23/25 13:17 BMI result Body Mass Index 26.0 Tobacco/Smoking Status: Tobacco use Status Tobacco use date assessed 03/23/25 03/23/25 13:18 Patient Tobacco Use Status Never used Tobacco 03/23/25 13:18 e-Cigarette/Vaping Use Never Used 03/23/25 13:18 PHQ-9: PHQ-9 Score PHQ-9: Total score 10 03/23/25 13:30 Thrive Assessment: Date of Thrive Assessment Date Thrive assessed 03/23/25 03/23/25 13:18 Currently or been in a relationship where the following occur: No concerns reported Const General: cooperative and no acute distress Orientation/consciousness: patient oriented x3 HENMT Head: Yes normal to inspection and Yes normocephalic Ears: hearing grossly normal bilaterally Eyes General: appearance normal, both eyes and all related structures Pupils: Equal, round and reactive pupils present EOM: EOMs intact bilaterally Direct Ophthalmoscopy: normal light reflex, no photophobia and no papilledema Neck Neck: Yes normal visual inspection and Yes full ROM Resp Effort & Inspection: normal respiratory effort Auscultation: clear to auscultation bilaterally Cardio Rate: regular rate Rhythm: regular rhythm Heart sounds: S1 normal heart sound present and S2 normal heart sound present Peripheral pulses: Peripheral pulses 2+ throughout Skin Other: Slightly loose skin noted General skin exam: no rashes or lesions noted Neuro General: patient oriented x3 Cranial nerves: Yes CN's II-XII intact bilaterally and Yes Equal, round and reactive pupils present Gait exam (Neuro): Normal gait present Romberg Test: Negative Psych Affect: normal affect Attitude: cooperative Thought process: Normal thought process present Thought content: Normal thought content present Coding Level of Care Code Est Pt Level 4 (96621) Complex EM visit Add On G2211 Diagnoses Hypermobility syndrome M35.7 Chronic midline thoracic back pain M54.6; G89.29 Back pain laterality: midline Chronic bilateral low back pain without sciatica M54.50; G89.29 Back pain laterality: bilateral Chronicity: chronic Sciatica presence: without sciatica Chronic hip pain, bilateral M25.551; M25.552; G89.29 Gait instability R26.81 Generalized abdominal pain R10.84 Abdominal location: generalized Food intolerance K90.49 Chronic diarrhea K52.9 Assessment & Plan Assessment & Plan (1) Hypermobility syndrome: Comment: Diagnosed in the past by her pediatric Rheumatology, currently has an appointment to see a non clinical advisor in [place] in 12/2024 Code(s): M35.7 - Hypermobility syndrome Category: Medical (2) Chronic thoracic back pain: Code(s): M54.6 - Pain in thoracic spine; G89.29 - Other chronic pain Category: Medical Qualifiers: Back pain laterality: midline Qualified Code(s): M54.6 - Pain in thoracic spine; G89.29 - Other chronic pain (3) Lower back pain: Code(s): M54.50 - Low back pain, unspecified Category: Medical Qualifiers: Back pain laterality: bilateral Chronicity: chronic Sciatica presence: without sciatica Qualified Code(s): M54.50 - Low back pain, unspecified; G89.29 - Other chronic pain (4) Chronic hip pain, bilateral: Code(s): M25.551 - Pain in right hip; M25.552 - Pain in left hip; G89.29 - Other chronic pain Category: Medical (5) Gait instability: Code(s): R26.81 - Unsteadiness on feet Category: Medical (6) Abdominal pain: Code(s): R10.9 - Unspecified abdominal pain Category: Medical Qualifiers: Abdominal location: generalized Qualified Code(s): R10.84 - Generalized abdominal pain (7) Food intolerance: Code(s): K90.49 - Malabsorption due to intolerance, not elsewhere classified Category: Medical (8) Chronic diarrhea: Code(s): K52.9 - Noninfective gastroenteritis and colitis, unspecified Category: Medical Plan - Follow up with referrals to rheumatology and gastroenterology specialists as soon as possible. - Complete fasting blood work as ordered. - Attend physical therapy sessions to improve joint stability. - Monitor and report any exacerbations of pain or new symptoms. - Ensure genetic testing appointment is scheduled for next year. - Follow a balanced diet and ensure proper hydration, especially in warm weather. - Contact our office if you don't hear from any specialty referrals after 10 days. - Schedule an appointment for a full physical in June. I discussed the possible diagnosis of Mauro-Danlos Syndrome with the patient, highlighting genetic testing utility for confirming subtype diagnosis and guiding management. We explored the option of consulting a granulizing machine operator and physical therapy to manage joint symptoms and affirmed the importance of gastrointestinal evaluation for her digestive complaints. The risks of ongoing symptoms versus the benefits of a thorough multidisciplinary approach were emphasized. I advised plastic as possible on the importance of monitoring any aggravation of pain or joint stability issues and immediately seeking care if symptoms escalate or affect her ability to perform daily tasks. Future follow-ups will ensure monitoring and adjustment of her care plan. Patient was informed and verbally consented to the use of an ambient scribe for clinic note documentation during this visit Orders: Orders PT Evaluation and Treatment 03/23/25 G89.29 - Other chronic pain, M25.551 - Pain in right hip, M25.552 - Pain in left hip, M35.7 - Hypermobility syndrome, M54.50 - Low back pain, unspecified, M54.6 - Pain in thoracic spine, R26.81 - Unsteadiness on feet Referrals Rheumatology Referral G89.29 - Other chronic pain, M25.551 - Pain in right hip, M25.552 - Pain in left hip, M35.7 - Hypermobility syndrome, M54.50 - Low back pain, unspecified, M54.6 - Pain in thoracic spine Gastroenterology Referral K52.9 - Noninfective gastroenteritis and colitis, unspecified, K90.49 - Malabsorption due to intolerance, not elsewhere classified, R10.9 - Unspecified abdominal pain
== END 2025-03-23 13:49 | disposition home or self-care (01) ==
PROVIDERS: PCP Internal Medicine; Visit Provider Internal Medicine
DX: M35.7 Hypermobility syndrome (principal); M54.6 Pain in thoracic spine; G89.29 Other chronic pain; M54.50 Low back pain, unspecified; M25.551 Pain in right hip; M25.552 Pain in left hip; R26.81 Unsteadiness on feet; R10.84 Generalized abdominal pain; K90.49 Malabsorption due to intolerance, not elsewhere classified; K52.9 Noninfective gastroenteritis and colitis, unspecified

== ENCOUNTER → 2025-03-23 12:47 | Outpatient (BNVA) | payer OTHER, SELFPAY | PROVIDERS: PCP Internal Medicine; Visit Provider Internal Medicine | DX: M35.7 Hypermobility syndrome (principal); M54.6 Pain in thoracic spine; M54.50 Low back pain, unspecified; M25.551 Pain in right hip; M25.552 Pain in left hip; G89.29 Other chronic pain; R26.81 Unsteadiness on feet; R10.84 Generalized abdominal pain; K90.49 Malabsorption due to intolerance, not elsewhere classified; K52.9 Noninfective gastroenteritis and colitis, unspecified | CPT/HCPCS: 99212 ==

== ENCOUNTER 2025-03-27 10:50 | Outpatient (REF) | payer OTHER, SELFPAY ==
--- NOTE | ~2025-03-27 | XR_ITS ---
CLINICAL HISTORY: M54.6 - Pain in thoracic spine 3 views thoracic spine Comparison: None Findings: Normal vertebral body alignment. No acute fractures or dislocation. No significant degenerative change. IMPRESSION: No acute findings. This document has been electronically signed by: Tim Chowdhury MD on 03/28/2025 08:45:24
--- NOTE | ~2025-03-27 | XR_ITS ---
CLINICAL HISTORY: M54.6 - Pain in thoracic spine 7 views lumbar spine Comparison: None Findings: Normal vertebral body alignment. Alignment is maintained with flexion and extension positioning. No acute fractures or dislocation. No significant degenerative change. IMPRESSION: No acute findings. This document has been electronically signed by: Tim Chowdhury MD on 03/28/2025 08:45:33
--- NOTE | ~2025-03-27 | XR_ITS ---
CLINICAL HISTORY: M54.6 - Pain in thoracic spine 5 views, pelvis and bilateral hips Comparison: None Findings: No acute fracture or dislocation. No significant arthritic change. The soft tissues are unremarkable. IMPRESSION: No acute findings. This document has been electronically signed by: Tim Chowdhury MD on 03/28/2025 08:44:19
== END 2025-03-27 10:51 | disposition home or self-care (01) ==
LOC: HO.XRAY 10:50
PROVIDERS: PCP Internal Medicine; Visit Provider Internal Medicine
DX: M54.6 Pain in thoracic spine (principal); G89.29 Other chronic pain; M54.50 Low back pain, unspecified; M25.551 Pain in right hip; M25.552 Pain in left hip
CPT/HCPCS: 72072; 72114; 73521

== ENCOUNTER → 2025-03-27 10:57 | Outpatient (BNV) | payer OTHER, SELFPAY | PROVIDERS: PCP Internal Medicine; Visit Provider Specialist | DX: M54.6 Pain in thoracic spine (principal) | CPT/HCPCS: 72072; 72114; 73521 ==

== ENCOUNTER 2025-05-13 15:46 | Emergency (ER) | payer OTHER, SELFPAY ==
[2025-05-13 16:01] VITALS: BP 103/74; PULSE 92; RESP 18; TEMP 36.7; O2SAT 98; BMI 24.5
--- NOTE | 2025-05-13 16:04 | ED.GENADULT ---
HPI - General Adult General Chief complaint: General Medical Stated complaint: Abd pain, concerned Time Seen by Provider: 05/13/25 18:43 Related Data Home Medications ?Medication ?Instructions ?Recorded ?Confirmed acetaminophen 325 mg capsule 325 mg PO QID PRN 03/13/24 04/29/24 (Tylenol) ibuprofen 200 mg capsule 200 mg PO Q6H PRN 03/13/24 04/29/24 Allergies Allergy/AdvReac Type Severity Reaction Status Date / Time No Known Allergies Allergy Verified 05/13/25 16:05 [facility] Past Medical History Medical History (Updated 05/14/25 @ 00:01 by Fouzia De Paz) Chronic diarrhea Gait instability Chronic hip pain, bilateral Lower back pain Chronic thoracic back pain Prolapse of female pelvic organs Hypermobility syndrome Internal hemorrhoid Abnormal glucose tolerance test (GTT) Subchorionic hematoma ADHD Anxiety Migraines Surgical History (Updated 03/24/25 @ 00:58 by Alison Barrow MD) Status post embolization of uterine artery S/P sacrocolpopexy Status post vaginal hysterectomy History of tubal ligation Family History Family History Father Hypertension Mental health disorder Substance use disorder Mother No problems noted. Social History Social History Housing: Apartment Patient Tobacco Use Status: Never used Tobacco Smoked in Last 30 Days: No e-Cigarette/Vaping Use: Never Used Use of substances other than those prescribed or required for medical reasons: Yes Substance Use Type: Marijuana Substance Use Frequency: Daily Advance Directives: No Advance Directives Information Provided: No Do you have a plan to hurt others: No Plan service: No Current occupational status: employed Cognitive needs: No Hearing needs: No Vision needs: Yes Physical Exam ED Vital Signs: Vital Signs - 24 hr 05/13/25 16:01 05/13/25 19:51 05/13/25 20:41 Temperature 98.1 F 98.7 F 98.7 F Pulse Rate 92 55 55 Respiratory Rate 18 16 16 Blood Pressure 103/74 107/57 L 107/57 L Pulse Oximetry 98 99 99 Oxygen Delivery Method Room Air Room Air Room Air BMI result Body Mass Index 24.5 Course Course Course Narrative: This is an RME: Additional HPI, ROS, PE not included below will be deferred to primary provider. RME assessment and note performed by: Leslie Lockhart PA-C This is a [id number]-female, with a hx of vaginal hysterectomy sling and cystoscopy due to pelvic organ prolapse done by Dr. Hendrickson complicated by hemoperitoneum and aortic dissection, with concerns for ?pelvic organ prolapse. Reports that she has had suprapubic pressure, urinary retention and also bulging in private regions after intimacy. Plan: EKG, labs, UA, further Er eval needed Medical Decision Making Medical Decision Making MDM Narrative: Medical Decision Makin-year-old female with history of uterine prolapse rectocele and rectal prolapse possible connective tissue disorder. Urogynecology procedure removing uterus and cervix previously now with some vague lower discomfort of the abdomen. No fever no chills no lower abdominal tenderness on examination. Urine does not suggest UTI. I discussed with her the limitations of a pelvic exam she declined this. 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 I do not see any indication for acute imaging and I had a lengthy shared decision-making discussion with the patient regarding that she is agreeable to avoid any ultrasound CT, pelvic exam or other testing at this time. Preliminary Favored Differential Diagnosis: Constipation, GI cramping, gas, less likely ovarian cyst, no examination or historical findings suggestive of torsion or acute emergent adnexal pathology or intestinal pathology. No right lower quadrant tenderness to suggest appendicitis among additional considered etiologies Testing Interpreted Independently: Not Applicable Radiology or Lab testing Results Reviewed: Not Applicable Consults: Not Applicable Independent Historians/External Chart Reviews: Not Applicable Social Determinants of Health Impacting MDM/Planning: Not Applicable Lab Data 05/13/25 16:56 05/13/25 16:56 Labs: Lab Results 05/13/25 05/13/25 Range/Units 16:56 17:01 WBC 11.3 H (4.8-10.8) X10*3/uL RBC 3.95 L (4.20-5.50) X10*6/uL Hgb 12.0 (12.0-16.0) g/dl Hct 34.4 L (37.0-47.0) % MCV 87.1 (80.0-98.0) fL MCH 30.4 (27.0-33.0) pg MCHC 34.9 (31.0-35.0) g/dl RDW 12.4 (11.0-16.0) % Plt Count 268 (160-400) X10*3/uL MPV 9.1 L (9.4-12.3) fL Immature Gran % (Auto) 0.2 (0.0-0.4) % Neut % (Auto) 73.0 (45-73) % Lymph % (Auto) 21.0 (20-40) % [place] % (Auto) 4.8 (2-11) % Eos % (Auto) 0.6 (0-4) % Baso % (Auto) 0.4 (0-2) % Lymph # (Auto) 2.4 (1.2-4.9) X10*3/uL [place] # (Auto) 0.5 (0.1-1.2) X10*3/uL Eos # (Auto) 0.1 (0.0-0.4) X10*3/uL Baso # (Auto) 0.0 (0.0-0.2) X10*3/uL Abs Immat Gran (auto) 0.02 (0.00-0.03) X10*3/uL Absolute Neuts (auto) 8.2 (2.0-8.3) x10*3/uL Absolute Nucleated RBC 0.000 (0.0-0.012) X10*3/uL Nucleated RBC % (auto) 0.0 (0.0-0.2) /100WBC Sodium 140 (135-145) mmol/L Potassium 4.3 (3.3-5.1) mmol/L Chloride 106 (96-108) mmol/L Carbon Dioxide 28 (22-29) mmol/L Anion Gap 10 L (12-20) BUN 9 (9-16) mg/dL Creatinine 0.55 (0.5-1.4) mg/dL Estim Creat Clear Calc 126.0 Estimated GFR > 60 Random Glucose 89 (60-115) mg/dL Calcium 9.8 (8.4-10.2) mg/dL Magnesium 2.1 (1.6-2.6) mg/dL Total Bilirubin 0.4 (0.0-1.0) mg/dL Direct Bilirubin 0.1 (0.0-0.5) mg/dL AST 16 (5-31) U/L ALT 10 (0-31) U/L Alkaline Phosphatase 88 (39-117) U/L Total Protein 7.1 (6.5-8.0) g/dL Albumin 4.6 (3.5-5.0) g/dL Urine Color Yellow Urine Appearance Clear Urine pH 7.5 (5.0-9.0) Ur Specific [place] 1.015 (1.005-1.025) Urine Protein Negative (Neg-Trace) mg/dL Urine Glucose (UA) Negative (Negative) mg/dL Urine Ketones Negative (Negative) mg/dL Urine Blood Negative (Negative) Urine Nitrite Negative (Negative) Ur Leukocyte Esterase Negative (Negative) Discharge Plan Discharge Clinical Impression: Pelvic pain Patient Disposition: Home, Self-Care Instructions: Pelvic Pain (ED) Additional Instructions: DISCHARGE DIAGNOSES: Pelvic pain of unclear cause at this time HISTORY OF PRESENTATION: ?Intermittent pelvic pain EMERGENCY DEPARTMENT COURSE,TESTS, TREATMENTS: While in the ED today you had blood work and urinalysis and had an abdominal examination that were reassuring DISCHARGE MEDICATIONS: ?[We have made no changes to your regular medication regimen] FOLLOW-UP: ?Call your primary or general physician soon as possible to discuss your symptoms, your ED visit and to discuss follow up plans Continue with your previously scheduled calciner operator helper follow up try to expedite by calling the office tell him that you were seen in the emergency department and we would like you to be seen sooner than June INSTRUCTIONS ?& RETURN PRECAUTIONS: If any symptoms change first call your primary physician, if it is after-hours your primary doctors office should have a provider piston maker you can speak with. If the symptoms are severe or very concerning to you then call 911 or return to the ED. Return for severe or worsening pain, development of high fever, bleeding or discharge from the vagina, inability to urinate or passing a bowel movement Rio Chand MD Emergency Physician [facility] Prescriptions: No Action acetaminophen [Tylenol] 325 mg capsule 325 mg PO QID PRN ibuprofen 200 mg capsule 200 mg PO Q6H PRN Interventions: ED Discharge Assessment Last Done: 05/13/25 20:41 Discharge Date/Time: 05/13/25 20:41 Print Language: Tajik
[2025-05-13 17:01] LABS: MANUAL DIFF FLAG NO
[2025-05-13 17:02] LABS: Hematocrit 34.4 % (37.0-47.0); Hemoglobin 12.0 g/dl (12.0-16.0); Imm Gran Abs Auto 0.02 X10*3/uL (0.00-0.03); Imm Gran Pct Auto 0.2 % (0.0-0.4); Lymphocytes Absolute Auto 2.4 X10*3/uL (1.2-4.9); Mean Corpuscular HGB Conc 34.9 g/dl (31.0-35.0); Mean Corpuscular Hemoglobin 30.4 pg (27.0-33.0); Mean Corpuscular Volume 87.1 fL (80.0-98.0); NRBC Abs Auto 0.000 X10*3/uL (0.0-0.012); NRBC Pct Auto 0.0 /100WBC (0.0-0.2); Platelet Count 268 X10*3/uL (160-400); Red Blood Count 3.95 X10*6/uL (4.20-5.50); White Blood Count 11.3 X10*3/uL (4.8-10.8)
[2025-05-13 17:13] LABS: Appearance Urine Clear; Glucose Urine UA Negative (Negative); PH 7.5 (5.0-9.0); Specific Gravity - Urine 1.015 (1.005-1.025)
[2025-05-13 17:19] LABS: Alanine Aminotransferase 10 U/L (0-31); Albumin Level 4.6 g/dL (3.5-5.0); Alkaline Phosphatase 88 U/L (39-117); Anion Gap 10 (12-20); Aspartate Amino Transferase 16 U/L (5-31); Blood Urea Nitrogen 9 mg/dL (9-16); Calcium 9.8 mg/dL (8.4-10.2); Carbon Dioxide 28 mmol/L (22-29); Chloride 106 mmol/L (96-108); Creatinine Clr Calc Pharmacy 126.0; Estimated Glomerular Filt Rate > 60; Magnesium 2.1 mg/dL (1.6-2.6); Potassium 4.3 mmol/L (3.3-5.1); Sodium 140 mmol/L (135-145); Total Protein 7.1 g/dL (6.5-8.0)
[2025-05-13 19:51] VITALS: BP 107/57; PULSE 55; RESP 16; TEMP 37.1; O2SAT 99
[2025-05-13 20:41] VITALS: BP 107/57; PULSE 55; RESP 16; TEMP 37.1; O2SAT 99
== END 2025-05-13 20:41 | disposition home or self-care (01) ==
PROVIDERS: Physician Assistant Medical; Emergency Provider Emergency Medicine; PCP Internal Medicine
DX: R10.2 Pelvic and perineal pain (principal); Z79.899 Other long term (current) drug therapy
CPT/HCPCS: 36415; 80048; 80076; 81003; 83735; 85025; 99283; 99284